=== PATIENT | female | born 1960 | race Caucasian/White ===

== ENCOUNTER 2017-12-23 12:42 | Emergency (ER) | payer SELFPAY ==
[~2017-12-23] VITALS: Ht 167.6 cm; Wt 137.4 kg
[~2017-12-23 12:42] MED LIST: IBUP800 PO; OXYACE5T PO; Ventolin/Prove6.7 GM INH
[2017-12-23] MEDS ORDERED: LEVSOD100 PO (13:38)
[2017-12-23] MEDS ORDERED: IBUP800 PO (14:03)
[2017-12-23] MEDS ORDERED: HINGED KNEE SUPPORT (14:03)
== END 2017-12-23 14:07 | disposition home or self-care (01) ==
LOC: ER 12:42
DX: M25.562 Pain in left knee (principal); Z88.2 Allergy status to sulfonamides; Z88.8 Allergy status to other drugs, medicaments and biological substances; Z88.1 Allergy status to other antibiotic agents; Z79.899 Other long term (current) drug therapy; F17.200 Nicotine dependence, unspecified, uncomplicated
CPT/HCPCS: 73562-LT; 99283